=== PATIENT | female | born 1940 | race Caucasian/White ===

== ENCOUNTER → 2017-03-01 | Outpatient (CLI) | payer MEDICARE ==
[~2017-03-01] MED LIST: ATEN50TA PO; CALC-727 PO; IOHEXOL 300 MG/ML 75ml INJECTION ONE; MULT-1243 PO; NORMAL SALINE 100 ML ONE; SALINE FLUSH 10ml SYRINGE ONE
--- NOTE | 2017-03-01 09:49 | DI ---
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 Coronal and sagittal two-dimensional reformats. Automated Exposure Control and Iterative Reconstruction dose reducing techniques were utilized. Contrast: Omnipaque 300 74 mL Findings: Chest: Stable regions of scarring in the lower lung gardiner. No pleural effusion or pneumothorax. The central airways are patent. No new pulmonary nodule or mass. Metallic artifact from bilateral shoulder replacements. No axillary adenopathy. Prior left mastectomy. Heart and great vessels are stable in appearance. Heart size is normal. No pericardial effusion. Coronary artery calcifications. Abdomen/pelvis: The liver enhances normally. No mass or bile duct dilatation. The gallbladder, pancreas and adrenal glands are within normal limits. Kidneys are unchanged. Scattered atherosclerotic plaque in the abdominal aorta and its major branches. Bladder is unremarkable. Uterus is grossly normal. Anastomoses seen within the bowel. No evidence of a bowel obstruction. Bone windows show degenerative changes in the spine without focal lytic or blastic osseous lesion. Impression: Stable exam without evidence of metastatic disease in the chest, abdomen or pelvis. .
== END ==
LOC: IMA 08:24
PROVIDERS: ATTEND Internal Medicine Medical Oncology
DX: C49.3 Malignant neoplasm of connective and soft tissue of thorax (principal); C50.912 Malignant neoplasm of unspecified site of left female breast
CPT/HCPCS: 71260; 74177; J7050; Q9967

== ENCOUNTER → 2017-03-15 | Outpatient (CLI) | payer MEDICARE ==
[~2017-03-15] MED LIST changes: -IOHEXOL 300 MG/ML 75ml INJECTION ONE; -NORMAL SALINE 100 ML ONE; -SALINE FLUSH 10ml SYRINGE ONE
[2017-03-15 09:14] LABS: BASOPHILS % (AUTO) 0.4 % (0-2); EOSINOPHILS # (AUTO) 0.2 T/MM3 (0-0.5); EOSINOPHILS % (AUTO) 2.7 % (0-4); HCT - HEMATOCRIT 37.4 % (36-46); HGB - HEMOGLOBIN 12.1 GM/DL (12-16); IMMATURE GRANULOCYTE # (AUTO) 0.11 T/MM3 (0.00-0.03); IMMATURE GRANULOCYTE % (AUTO) 1.5 % (0.0-0.5); LYMPHOCYTES # (AUTO) 1.4 T/MM3 (1-4.8); LYMPHOCYTES % (AUTO) 19.5 % (23-45); MEAN CORPUSCULAR HGB 30.4 UUG (26-34); MEAN CORPUSCULAR HGB CONC(MCHC 32.4 GM/DL (31-37); MEAN PLATELET VOLUME 9.4 UM3 (9.4-12.4); MONOCYTES # (AUTO) 0.7 T/MM3 (0-0.8); MONOCYTES % (AUTO) 9.5 % (0-9.0); NEUTROPHILS #(AUTO)-ABSOLUTE 4.7 T/MM3 (1.8-7.7); NEUTROPHILS % (AUTO) 66.4 % (33-66); RED BLOOD COUNT 3.98 M/MM3 (4.00-5.20); WBC - WHITE BLOOD COUNT 7.1 T/MM3 (4.5-11.0)
== END ==
LOC: LAB 08:54
PROVIDERS: ATTEND Internal Medicine Medical Oncology
DX: C49.3 Malignant neoplasm of connective and soft tissue of thorax (principal); C50.912 Malignant neoplasm of unspecified site of left female breast
CPT/HCPCS: 36415; 85025